=== PATIENT | male | born 1975 | race Caucasian/White ===

== ENCOUNTER → 2020-10-11 09:59 | Outpatient (BNVA) | payer OTHER, SELFPAY | PROVIDERS: PCP Internal Medicine; Referring Provider Internal Medicine; Visit Provider Urology | DX: N52.9 Male erectile dysfunction, unspecified (principal); Z79.899 Other long term (current) drug therapy | CPT/HCPCS: 99212 ==

== ENCOUNTER 2021-04-17 08:39 | Outpatient (REF) | payer OTHER, SELFPAY ==
[2021-04-17 11:58] LABS: Alanine Aminotransferase 27 U/L (0-40); Anion Gap 12 (12-20); Aspartate Amino Transferase 18 U/L (5-37); Blood Urea Nitrogen 21 mg/dL (9-16); Carbon Dioxide 28 mmol/L (22-29); Chloride 107 mmol/L (96-108); Cholesterol 187 mg/dL; Estimated Glomerular Filt Rate > 60; Glucose Fasting 95 mg/dL (60-99); HDL Cholesterol 43 mg/dL; LDL Cholesterol Calculated 122 mg/dl; Potassium 4.4 mmol/L (3.3-5.1); Sodium 143 mmol/L (135-145); Triglycerides 113 mg/dL
[2021-04-17 12:22] LABS: Free T4 (Free Thyroxine) 1.12 ng/dL (0.71-1.85); Thyroid Stimulating Hormone 1.15 uIU/mL (0.32-4.0)
[2021-04-18 21:42] LABS: Thyroid Peroxidase Antibodies <1 IU/mL (<9)
== END 2021-04-17 08:40 | disposition home or self-care (01) ==
LOC: HO.HMGCLDS 08:39
PROVIDERS: PCP Internal Medicine; Visit Provider Internal Medicine
DX: Z00.01 Encounter for general adult medical examination with abnormal findings (principal); E03.9 Hypothyroidism, unspecified; I10 Essential (primary) hypertension
CPT/HCPCS: 36415; 80048; 80061; 84439; 84443; 84450; 84460; 86376

== ENCOUNTER 2022-04-21 08:49 | Outpatient (REF) | payer OTHER, SELFPAY ==
[2022-04-21 11:45] LABS: Alanine Aminotransferase 22 U/L (0-40); Anion Gap 9 (12-20); Aspartate Amino Transferase 16 U/L (5-37); Blood Urea Nitrogen 23 mg/dL (9-16); Calcium 9.2 mg/dL (8.4-10.2); Carbon Dioxide 28 mmol/L (22-29); Chloride 107 mmol/L (96-108); Cholesterol 199 mg/dL; Estimated Glomerular Filt Rate > 60; Glucose Fasting 107 mg/dL (60-99); HDL Cholesterol 41 mg/dL; LDL Cholesterol Calculated 132 mg/dl; Potassium 4.2 mmol/L (3.3-5.1); Sodium 140 mmol/L (135-145); Triglycerides 132 mg/dL
[2022-04-21 12:04] LABS: Free T4 (Free Thyroxine) 1.08 ng/dL (0.71-1.85); Thyroid Stimulating Hormone 1.88 uIU/mL (0.32-4.0)
== END 2022-04-21 08:50 | disposition home or self-care (01) ==
LOC: HO.HMGCLDS 08:49
PROVIDERS: PCP Internal Medicine; Visit Provider Internal Medicine
DX: Z00.01 Encounter for general adult medical examination with abnormal findings (principal); E03.9 Hypothyroidism, unspecified
CPT/HCPCS: 36415; 80048; 80061; 84439; 84443; 84450; 84460

== ENCOUNTER → 2022-09-19 08:44 | Outpatient (BNVA) | payer OTHER, SELFPAY | PROVIDERS: PCP Internal Medicine; Visit Provider Nurse Practitioner Family | DX: Z01.818 Encounter for other preprocedural examination (principal); K58.0 Irritable bowel syndrome with diarrhea | CPT/HCPCS: 99202 ==

== ENCOUNTER 2023-06-14 06:52 | Outpatient (REF) | payer OTHER, SELFPAY ==
[2023-06-14 12:36] LABS: Estimated Average Glucose 103 mg/dL; Hemoglobin A1c % 5.2 %
[2023-06-14 13:00] LABS: Cholesterol 211 mg/dL; Glucose Fasting 103 mg/dL (60-99); HDL Cholesterol 44 mg/dL; LDL Cholesterol Calculated 139 mg/dl; Triglycerides 141 mg/dL
[2023-06-14 13:07] LABS: Free T4 (Free Thyroxine) 0.98 ng/dL (0.71-1.85); Thyroid Stimulating Hormone 2.66 uIU/mL (0.32-4.0)
== END 2023-06-14 06:53 | disposition home or self-care (01) ==
LOC: HO.HMGCLDS 06:52
PROVIDERS: PCP Internal Medicine; Visit Provider Internal Medicine
DX: E03.9 Hypothyroidism, unspecified (principal); R73.01 Impaired fasting glucose
CPT/HCPCS: 36415; 80061; 82947; 83036; 84439; 84443

== ENCOUNTER 2023-06-27 13:41 | Outpatient (AMB) | payer OTHER, SELFPAY ==
[2023-06-27 13:49] VITALS: BP 114/80; PULSE 84; O2SAT 95; BMI 22.8
--- NOTE | 2023-06-27 13:49 | A.OFFPC_ITS ---
Vital Signs 06/27/23 13:49 Height 5 ft 7 in Weight 145 lb 8 oz BMI 22.8 BP 114/80 Blood Pressure Location Rt brachial Position Sitting Pulse 84 Pulse Source Pulse Oximeter Pulse Oximetry (%) 95 Oxygen Delivery Method Room Air Intake Visit Reasons: Medication followup Allergies acetaminophen [From PERCOCET] Allergy (Unknown, Verified 06/27/23 14:22) HIVES amoxicillin [AMOXICILLIN] Allergy (Unknown, Verified 06/27/23 14:22) UNKNOWN ascorbic acid [From AIRBORNE (ASCORBATE SODIUM)] Allergy (Unknown, Verified 06/27/23 14:22) HIVES aspirin Allergy (Unknown, Verified 06/27/23 14:22) hives glutamine [From AIRBORNE (ASCORBATE SODIUM)] Allergy (Unknown, Verified 06/27/23 14:22) HIVES guaifenesin [From MUCINEX] Allergy (Unknown, Verified 06/27/23 14:22) HIVES herbal complex no.124 [From AIRBORNE (ASCORBATE SODIUM)] Allergy (Unknown, Verified 06/27/23 14:22) HIVES lysine HCl [From AIRBORNE (ASCORBATE SODIUM)] Allergy (Unknown, Verified 06/27/23 14:22) HIVES multivitamin with minerals [From AIRBORNE (ASCORBATE SODIUM)] Allergy (Unknown, Verified 06/27/23 14:22) HIVES oxycodone [From PERCOCET] Allergy (Unknown, Verified 06/27/23 14:22) HIVES penicillin V Allergy (Unknown, Verified 06/27/23 14:22) hives generic robitussin Allergy (Intermediate, Uncoded 06/27/23 14:22) hives bee stings Allergy (Unknown, Uncoded 06/27/23 14:22) Unknown Medication List - Last Reconciled 06/27/23 by Rody Hernandez MD [cbd oil 2 gtts SL q HS sublingual; ] levothyroxine 75 mcg PO QAM Tobacco use date assessed: 06/27/23 Dental Screening Dental Screen Date: 06/27/23 Did you have a dental visit in the last 12 months?: Yes Did you have a dental problem in the last 6 months where you did not have access to dental care?: No Was dental information given to patient?: No HPI Medication followup HPI Details 48-year-old male with hypothyroidism, here today for follow-up he is currently taking levothyroxine 75 mcg taken daily in a.m.. Had recent fasting labs done which showed LDL cholesterol and fasting glucose slightly elevated , with thyroid levels within normal limits Laboratory Tests 06/14/23 06/14/23 06:57 06:57 Fasting Glucose 103 H Estimat Average Gl ucose 103 Hemoglobin A1c % 5.2 Triglycerides 141 Cholesterol 211 LDL Cholesterol, C alc 139 HDL Cholesterol 44 TSH 2.66 Free T4 0.98 His also complaining of pain over anterior aspect of right shoulder which started this morning while at work. 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 Denies any numbness tingling, no weakness. [facility] Medical History Barretts esophagus Dyslipidemia GERD (gastroesophageal reflux disease) Heartburn symptom Heel spur IBS (irritable bowel syndrome) Impaired fasting glucose Rupture patellar tendon Surgical History S/P LASIK surgery Family History Father Myocardial infarct CVD (cardiovascular disease) Substance use disorder Mother Stroke Diabetes Maternal Uncle Colon cancer Social History Housing: House Alcohol intake: never Patient Tobacco Use Status: Former Tobacco user e-Cigarette/Vaping Use: Never Used service: No Current occupational status: employed Cognitive needs: No Hearing needs: No Vision needs: No Questionnaire PHQ-9 Over the last 2 weeks, how often have you been bothered by any of the following problems? 1. Little interest or pleasure in doing things: not at all 2. Feeling down, depressed, or hopeless: not at all 3. Trouble falling or staying asleep, or sleeping too much: not at all 4. Feeling tired or having little energy: not at all 5. Poor appetite or overeating: not at all 6. Feeling bad about yourself - or that you are a failure or have let yourself or your family down: not at all 7. Trouble concentrating on things, such as reading the newspaper or watching television: not at all 8. Moving or speaking so slowly that other people could have noticed. Or the opposite - being so fidgety or restless that you have been moving around a lot more than usual: not at all 9. Thoughts that you would be better off or of hurting yourself in some way: not at all Total score: 0 Depression Screening Interpretation: Negative 10252 - PHQ-9 Billing: Yes Source: Developed by Drs. Jim Busch, Ashley Pryor, Shaquille Garcia and colleagues, with an educational faith from [employer]. Thrive Questionnaire Date Thrive assessed: 06/27/23 I am a: Patient What is your living situation today?: I have a steady place to live Within the past 12 months, did the food you bought not last and you didn't have the money to get more?: Never true Within the past 12 months, did you worry whether your food would run out before you got money to buy more?: Never true Do you have trouble paying for medicines?: No Do you have trouble getting transportation to medical appointments?: No Do you have trouble paying your heating and electricity bill?: No Do you have trouble taking care of your child, family member or friend?: No Do you have trouble with day-to-day activities such as bathing, preparing meals, shopping, managing finances, etc.?: No Are you currently unemployed and looking for a job?: No Are you interested in more education?: No AUDIT C Alcohol Use Questionnaire (AUDIT-C) 1. How often do you have a drink containing alcohol?: Never 3. How often do you have six or more drinks on one occasion?: Never Total Score: 0 Score Reviewed/Action Taken: Yes ETHAN-7 AMB Questionnaire ETHAN-7 Date ETHAN - 7 assessed: 04/18/22 Feeling nervous, anxious, or on edge: 0 = Not at all Not being able to stop or control worryin = Not at all Worrying too much about different things: 0 = Not at all Trouble relaxin = Not at all Being so restless that it is hard to sit still: 0 = Not at all Becoming easily annoyed or irritable: 0 = Not at all Feeling afraid as if something awful might happen: 0 = Not at all Total ETHAN-7 score (0-4 normal; 5-9 mild; 10-14 moderate; 15-21 severe): 0 Source: Developed by Drs. Jim Busch, Ashley Pryor, Shaquille Garcia and colleagues, with an educational faith from [employer]. ETHAN-7 Assessment Billing ETHAN-7 Assessment Tool: ETHAN-7 Assessment 94562 Review of Systems Const All systems reviewed & are unremarkable except as noted in HPI and below Musc Denies numbness and Denies tingling Neuro Reports no additional complaints, Denies focal weakness, Denies numbness, Denies Sensory deficit (Neuro), Denies tingling and Denies paresthesias Physical exam (Primary Care) Vital Signs: Last Vital Signs Pulse 84 06/27/23 13:49 BP 114/80 06/27/23 13:49 Pulse Ox 95 06/27/23 13:49 Oxygen Delivery Method Room Air 06/27/23 13:49 BMI result Body Mass Index 22.8 Tobacco/Smoking Status: Tobacco use Status Tobacco use date assessed 06/27/23 06/27/23 13:51 Patient Tobacco Use Status Former Tobacco user 06/27/23 13:51 e-Cigarette/Vaping Use Never Used 06/27/23 13:51 Depression Screening Interpretation: Negative Thrive Assessment: Date of Thrive Assessment Date Thrive assessed 04/18/22 06/27/23 13:51 Const General: cooperative, healthy appearing, comfortable and no acute distress Nutritional Appearance: average body habitus Orientation/consciousness: patient oriented x3 Neck Other: Supple with no lymphadenopathy, thyroid gland nonpalpable Resp Auscultation: clear to auscultation bilaterally Cardio Other: S1-S2 present regular rate and rhythm Neuro General: patient oriented x3 Sensory Exam: No Sensory deficit (Neuro) Extrem Other: Unable to abduct right arm more than 90 degrees would expect is experiencing pain over anterior aspect of right shoulder joint, slight swelling noted over right AC joint, area tender to palpation Assessment and Plan Assessment & Plan (1) Acquired hypothyroidism: Code(s): E03.9 - Hypothyroidism, unspecified Plan: Thyroid levels are within normal limit, continue levothyroxine 75 mcg daily in a.m. (2) Right anterior shoulder pain: Code(s): M25.511 - Pain in right shoulder Plan: May take ibuprofen 200 mg per tablet, 1-2 tablets every 12 hours as needed pain always take with food. Try applying Salonpas patch with lidocaine to affected area at bedtime. Rest of joint advised. RTC clinic if symptoms worsen (3) Impaired fasting glucose: Code(s): R73.01 - Impaired fasting glucose Plan: Your fasting blood sugars elevated above 100 mg/dL. Impaired glucose metabolism O2 at risk for developing diabetes mellitus type 2, as well as heart attack and stroke later on. Lifestyle changes at just weight loss, healthy eating habits, and regular exercise are important, and can prevent the progression to diabetes (4) Dyslipidemia: Code(s): E78.5 - Hyperlipidemia, unspecified Plan: Reviewed recent fasting lipid profile with patient with higher LDL cholesterol . Stressed importance of following a low-cholesterol diet and regular exercise, at least 30 minutes 3 to 4 times a week. Advised patient to make healthy food choices, eat more fruits, vegetables, whole grains, wild caught fish and low-fat dairy. Limit amount of meat and fried or fatty food products, as well as processed foods and fast foods. Coding Level of Care Code Est Pt Level 3 (88371) Diagnoses Acquired hypothyroidism E03.9 Right anterior shoulder pain M25.511 Impaired fasting glucose R73.01 Dyslipidemia E78.5 Additional Codes ETHAN-7 Assessment Billing - ETHAN-7 Assessment Tool: ETHAN-7 Assessment 87067 ([id number])
== END 2023-06-27 16:17 | disposition home or self-care (01) ==
PROVIDERS: PCP Internal Medicine; Visit Provider Internal Medicine
DX: E03.9 Hypothyroidism, unspecified (principal); M25.511 Pain in right shoulder; R73.01 Impaired fasting glucose; E78.5 Hyperlipidemia, unspecified
CPT/HCPCS: 99213

== ENCOUNTER 2025-07-07 08:00 | Outpatient (REF) | payer OTHER, SELFPAY ==
[2025-07-07 11:33] LABS: Hemoglobin A1C 144.0903 umol/L; Total Hemoglobin (HGBA1C) 3770.1242 umol/L
[2025-07-07 12:12] LABS: Alanine Aminotransferase 31 U/L (0-40); Anion Gap 11 (12-20); Aspartate Amino Transferase 33 U/L (5-37); Blood Urea Nitrogen 15 mg/dL (9-16); Calcium 9.1 mg/dL (8.4-10.2); Carbon Dioxide 29 mmol/L (22-29); Chloride 106 mmol/L (96-108); Cholesterol 206 mg/dL (<200); Estimated Glomerular Filt Rate > 60; HDL Cholesterol 46 mg/dL (>40); Potassium 3.9 mmol/L (3.3-5.1); Sodium 142 mmol/L (135-145); Triglycerides 156 mg/dL (<150)
[2025-07-07 12:20] LABS: Free T4 (Free Thyroxine) 1.14 ng/dL (0.71-1.85); Thyroid Stimulating Hormone 1.56 uIU/mL (0.32-4.0)
== END 2025-07-07 08:01 | disposition home or self-care (01) ==
LOC: HO.HMGCLDS 08:00
PROVIDERS: PCP Internal Medicine; Visit Provider Internal Medicine
DX: E78.5 Hyperlipidemia, unspecified (principal); E03.9 Hypothyroidism, unspecified; R73.01 Impaired fasting glucose
CPT/HCPCS: 36415; 80048; 80061; 83036; 84439; 84443; 84450; 84460

== ENCOUNTER 2025-07-13 08:08 | Outpatient (AMB) | payer OTHER, SELFPAY ==
[2025-07-13 08:16] VITALS: BP 108/72; PULSE 70; RESP 14; TEMP 36.6; O2SAT 97; BMI 22.4
--- NOTE | 2025-07-13 08:16 | A.OFFPC_ITS ---
Vital Signs 07/13/25 08:16 Height 5 ft 7 in Weight 143 lb BMI 22.4 BP 108/72 Blood Pressure Location Lt brachial Position Sitting Respiration 14 Pulse 70 Pulse Source Pulse Oximeter Temp 97.9 F Temp Source Oral Pulse Oximetry (%) 97 Intake Visit Reasons: Med. Review Allergies acetaminophen (From PERCOCET) Allergy (Unknown, Verified 07/13/25 08:56) HIVES amoxicillin (AMOXICILLIN) Allergy (Unknown, Verified 07/13/25 08:56) UNKNOWN ascorbic acid (From AIRBORNE (ASCORBATE SODIUM)) Allergy (Unknown, Verified 07/13/25 08:56) HIVES aspirin Allergy (Unknown, Verified 07/13/25 08:56) hives glutamine (From AIRBORNE (ASCORBATE SODIUM)) Allergy (Unknown, Verified 07/13/25 08:56) HIVES guaifenesin (From MUCINEX) Allergy (Unknown, Verified 07/13/25 08:56) HIVES herbal complex no.124 (From AIRBORNE (ASCORBATE SODIUM)) Allergy (Unknown, Verified 07/13/25 08:56) HIVES lysine HCl (From AIRBORNE (ASCORBATE SODIUM)) Allergy (Unknown, Verified 07/13/25 08:56) HIVES multivitamin with minerals (From AIRBORNE (ASCORBATE SODIUM)) Allergy (Unknown, Verified 07/13/25 08:56) HIVES oxycodone (From PERCOCET) Allergy (Unknown, Verified 07/13/25 08:56) HIVES penicillin V Allergy (Unknown, Verified 07/13/25 08:56) hives generic robitussin Allergy (Intermediate, Uncoded 07/13/25 08:56) hives bee stings Allergy (Unknown, Uncoded 07/13/25 08:56) Unknown Medication List - Last Reconciled 07/13/25 by Rody Hernandez MD levothyroxine 75 mcg PO QAM Tobacco use date assessed: 07/13/25 Dental Screening Dental Screen Date: 07/13/25 Did you have a dental visit in the last 12 months?: Yes Did you have a dental problem in the last 6 months where you did not have access to dental care?: No Was dental information given to patient?: Patient has dentist [facility] Medical History (Updated 07/19/25 @ 00:23 by Rody Hernandez MD) House dust mite allergy Dyslipidemia Impaired fasting glucose IBS (irritable bowel syndrome) Heartburn symptom Rupture patellar tendon Heel spur Barretts esophagus GERD (gastroesophageal reflux disease) Surgical History S/P LASIK surgery Family History Father Myocardial infarct CVD (cardiovascular disease) Substance use disorder Mother Stroke Diabetes Maternal Uncle Colon cancer Social History Housing: House Alcohol intake: never Patient Tobacco Use Status: Former Tobacco user e-Cigarette/Vaping Use: Never Used service: No Current occupational status: employed Current occupation: contractor Cognitive needs: No Hearing needs: No Vision needs: No Questionnaire PHQ-9 Over the last 2 weeks, how often have you been bothered by any of the following problems? 1. Little interest or pleasure in doing things: not at all 2. Feeling down, depressed, or hopeless: not at all 3. Trouble falling or staying asleep, or sleeping too much: not at all 4. Feeling tired or having little energy: several days 5. Poor appetite or overeating: not at all 6. Feeling bad about yourself - or that you are a failure or have let yourself or your family down: not at all 7. Trouble concentrating on things, such as reading the newspaper or watching television: not at all 8. Moving or speaking so slowly that other people could have noticed. Or the opposite - being so fidgety or restless that you have been moving around a lot more than usual: not at all 9. Thoughts that you would be better off or of hurting yourself in some way: not at all Total score: 1 Depression Screening Interpretation: Negative Depression Screening Done: Yes 76358 - PHQ-9 Billing: Yes Source: Developed by Drs. Jim Busch, Ashley Pryor, Shaquille Garcia and colleagues, with an educational faith from [employer]. Thrive Questionnaire Date Thrive assessed: 07/13/25 I am a: Patient What is your living situation today?: I have a steady place to live Within the past 12 months, did the food you bought not last and you didn't have the money to get more?: Never true Within the past 12 months, did you worry whether your food would run out before you got money to buy more?: Never true Do you have trouble paying for medicines?: No Do you have trouble getting transportation to medical appointments?: No Do you have trouble paying your heating and electricity bill?: No Do you have trouble taking care of your child, family member or friend?: No Do you have trouble with day-to-day activities such as bathing, preparing meals, shopping, managing finances, etc.?: No Are you currently unemployed and looking for a job?: No Are you interested in more education?: No Please select the resources that you would like help with: None Currently or been in a relationship where the following occur: No concerns reported THRIVE Score: 0 AUDIT C Alcohol Use Questionnaire (AUDIT-C) 1. How often do you have a drink containing alcohol?: Never 3. How often do you have six or more drinks on one occasion?: Never Total Score: 0 Score Reviewed/Action Taken: Yes ETHAN-7 AMB Questionnaire ETHAN-7 Date ETHAN - 7 assessed: 07/13/25 Feeling nervous, anxious, or on edge: 0 = Not at all Not being able to stop or control worryin = Not at all Worrying too much about different things: 0 = Not at all Trouble relaxin = Not at all Being so restless that it is hard to sit still: 0 = Not at all Becoming easily annoyed or irritable: 0 = Not at all Feeling afraid as if something awful might happen: 0 = Not at all Total ETHAN-7 score (0-4 normal; 5-9 mild; 10-14 moderate; 15-21 severe): 0 Source: Developed by Drs. Jim Busch, Ashley Pryor, Shaquille Garcia and colleagues, with an educational faith from [employer]. ETHAN-7 Assessment Billing ETHAN-7 Assessment Tool: ETHAN-7 Assessment 96762 Review of Systems Const Reports no additional complaints Eyes Reports no additional complaints ENT Reports no additional complaints Card Denies chest pain, Denies diaphoresis, Denies irregular heart rhythm, Denies lightheadedness and Denies dyspnea Resp Denies cough and Denies dyspnea GI Reports no additional complaints Reports no additional complaints Musc Denies numbness and Denies tingling Skin/Breast Denies rash Neuro Reports no additional complaints, Denies focal weakness, Denies numbness, Denies Sensory deficit (Neuro), Denies tingling and Denies paresthesias Psych Reports no additional complaints Endo Reports no additional complaints Eldon/Lymph Reports no additional complaints Aller/Immun Details: Reports allergy to dust mites with history of anaphylactic reaction Physical exam (Primary Care) Vital Signs: Last Vital Signs Temp 97.9 F 07/13/25 08:16 Pulse 70 07/13/25 08:16 Resp 14 07/13/25 08:16 BP 108/72 07/13/25 08:16 Pulse Ox 97 07/13/25 08:16 BMI result Body Mass Index 22.4 Tobacco/Smoking Status: Tobacco use Status Tobacco use date assessed 07/13/25 07/13/25 08:17 Patient Tobacco Use Status Former Tobacco user 07/13/25 08:17 e-Cigarette/Vaping Use Never Used 07/13/25 08:17 PHQ-9: PHQ-9 Score PHQ-9: Total score 1 07/13/25 09:07 Depression Screening Interpretation: Negative Thrive Assessment: Date of Thrive Assessment Date Thrive assessed 07/13/25 07/13/25 08:17 Currently or been in a relationship where the following occur: No concerns reported Const General: cooperative and no acute distress Nutritional Appearance: average body habitus Orientation/consciousness: patient oriented x3 Neck Other: Supple with no lymphadenopathy, thyroid gland nonpalpable Resp Auscultation: clear to auscultation bilaterally Cardio Other: S1-S2 present regular rate and rhythm GI Palpation (GI): Soft to palpation, nontender, no guarding and no masses Auscultation: normal bowel sounds General: Yes no CVA tenderness Back/Spine/Pelvis Back: no CVA tenderness and No back tenderness Skin General skin exam: no rashes or lesions noted Neuro General: patient oriented x3, gait normal, moves all extremities and no focal motor deficits Sensory Exam: No Sensory deficit (Neuro) Extrem General: Yes full ROM, Yes no joint enlargement and Yes normal gait Psych Appearance: grossly normal Mental Status: mental status grossly normal Speech and movement: Normal speech and movement present Affect: normal affect Results Reviewed Results Reviewed: Laboratory Tests 07/07/25 08:06 Estimat Average Glucose 114 Hemoglobin A1c % 5.6 Name: Major Garcia Age/Sex: 50/M : 1975 Unit#: [id number] Attend Dr: Rody Hernandez MD Re07/07/25 Status: DEP REF Location: [facility] Disch: SPEC : [id number] TERRANCE: 07/07/25 STATUS: COMP REQ : [id number] RECD: 07/07/25-[address]: Rody Hernandez MD COMP: 07/07/25 ENTERED: 07/07/[address] [facility] [address]: ORDERED: Met Prof Fast, AST, ALT, Lipid Panel, Free T4, TSH Test Result Flag Reference Sodium 142 135-145 mmol/L Potassium 3.9 3.3-5.1 mmol/L CL 106 96-108 mmol/L CO2 29 22-29 mmol/L Gap 11 L 12-20 BUN 15 9-16 mg/dL Creat 1.08 0.5-1.4 mg/dL eGFR > 60 Chronic Kidney Disease: Estimated GFR < 60 mL/min/1.73m2 Severe Kidney Disease: Estimated GFR < 15 mL/min/1.73m2 FBS 104 H 60-99 mg/dL A fasting glucose from 100-125 mg/dl is considered impaired (pre-diabetes). CA 9.1 8.4-10.2 mg/dL AST (GOT) 33 5-37 U/L ALT (GPT) 31 0-40 U/L Triglyceride 156 H <150 mg/dL Desirable Triglyceride: less than 150 mg/dL Borderline High Triglyceride 150-199 mg/dL High Triglyceride: 200-499 mg/dL Very High Triglyceride: greater than or equal to 5OO mg/dL Cholesterol 206 H <200 mg/dL Desirable Cholesterol: less than 200 mg/dL Borderline High Cholesterol: 200-239 mg/dL High Cholesterol: greater than 239 mg/dL LDL Calculated 129 H <100 mg/dL Desirable LDL: less than 100 mg/dL Near Optimal/Above Optimal LDL: 110-129 mg/dL Borderline High LDL: 130-159 mg/dL High LDL: 160-189 mg/dL Very High LDL: greater than or equal to 190 mg/dL HDL 46 >40 mg/dL Desirable HDL: greater than 40 mg/dL Note: This HDL assay may give artificially low results in patients with liver disease. Free T4 1.14 0.71-1.85 ng/dL TSH 3rd Gen. 1.56 0.32-4.0 uIU/mL TSH 3rd Generation ([facility]) Coding Level of Care Code Est Pt Level 4 (25098) Complex EM visit Add On G2211 Diagnoses Acquired hypothyroidism E03.9 House dust mite allergy Z91.09 Impaired fasting glucose R73.01 Dyslipidemia E78.5 Additional Codes ETHAN-7 Assessment Billing - ETHAN-7 Assessment Tool: ETHAN-7 Assessment 44788 ([id number]) PHQ-9 - 10428 - PHQ-9 Billing: Yes ([id number]) Assessment & Plan Assessment & Plan (1) Acquired hypothyroidism: Code(s): E03.9 - Hypothyroidism, unspecified Category: Medical (2) House dust mite allergy: Code(s): Z91.09 - Other allergy status, other than to drugs and biological substances Category: Medical (3) Impaired fasting glucose: Code(s): R73.01 - Impaired fasting glucose Category: Medical (4) Dyslipidemia: Code(s): E78.5 - Hyperlipidemia, unspecified Category: Medical Plan The patient will continue with levothyroxine 75 mcg for hypothyroidism, with a new prescription sent for a year to ensure medication adherence. Given the history of anaphylaxis to dust mites, the patient is advised to keep Benadryl at home and consider obtaining a new Epipen. For elevated blood glucose and triglycerides, dietary modifications are recommended, particularly reducing nighttime sweets consumption. Preventative care measures include scheduling a physical examination and considering a Cologuard test for colon cancer screening due to family history. Patient was informed and verbally consented to the use of an ambient scribe for clinic note documentation during this visit. Medications: Refilled levothyroxine 75 mcg PO QAM 90 tabs 4RF E03.9 - Hypothyroidism, unspecified
== END 2025-07-13 09:07 | disposition home or self-care (01) ==
LOC: HO.HMCC 08:09
PROVIDERS: PCP Internal Medicine; Visit Provider Internal Medicine
DX: E03.9 Hypothyroidism, unspecified (principal); Z91.09 Other allergy status, other than to drugs and biological substances; R73.01 Impaired fasting glucose; E78.5 Hyperlipidemia, unspecified

== ENCOUNTER → 2025-07-13 08:08 | Outpatient (BNVA) | payer OTHER, SELFPAY | PROVIDERS: PCP Internal Medicine; Visit Provider Internal Medicine | DX: R73.01 Impaired fasting glucose (principal); E03.9 Hypothyroidism, unspecified; E78.5 Hyperlipidemia, unspecified; Z91.09 Other allergy status, other than to drugs and biological substances | CPT/HCPCS: 96127; 99212 ==

== ENCOUNTER 2025-07-28 12:32 | Outpatient (AMB) | payer OTHER, SELFPAY ==
[2025-07-28 13:03] VITALS: BP 100/70; PULSE 73; RESP 16; TEMP 36.9; O2SAT 99; BMI 23.2
--- NOTE | 2025-07-28 13:03 | A.OFFPC_ITS ---
Vital Signs 07/28/25 13:03 Height 5 ft 7 in Weight 148 lb BMI 23.2 BP 100/70 Blood Pressure Location Lt brachial Position Sitting Respiration 16 Pulse 73 Pulse Source Pulse Oximeter Temp 98.5 F Temp Source Oral Pulse Oximetry (%) 99 Oxygen Delivery Method Room Air Intake Visit Reasons: PE Allergies acetaminophen (From PERCOCET) Allergy (Unknown, Verified 07/28/25 13:23) HIVES amoxicillin (AMOXICILLIN) Allergy (Unknown, Verified 07/28/25 13:23) UNKNOWN ascorbic acid (From AIRBORNE (ASCORBATE SODIUM)) Allergy (Unknown, Verified 07/28/25 13:23) HIVES aspirin Allergy (Unknown, Verified 07/28/25 13:23) hives glutamine (From AIRBORNE (ASCORBATE SODIUM)) Allergy (Unknown, Verified 07/28/25 13:23) HIVES guaifenesin (From MUCINEX) Allergy (Unknown, Verified 07/28/25 13:23) HIVES herbal complex no.124 (From AIRBORNE (ASCORBATE SODIUM)) Allergy (Unknown, Verified 07/28/25 13:23) HIVES lysine HCl (From AIRBORNE (ASCORBATE SODIUM)) Allergy (Unknown, Verified 07/28/25 13:23) HIVES multivitamin with minerals (From AIRBORNE (ASCORBATE SODIUM)) Allergy (Unknown, Verified 07/28/25 13:23) HIVES oxycodone (From PERCOCET) Allergy (Unknown, Verified 07/28/25 13:23) HIVES penicillin V Allergy (Unknown, Verified 07/28/25 13:23) hives generic robitussin Allergy (Intermediate, Uncoded 07/28/25 13:23) hives bee stings Allergy (Unknown, Uncoded 07/28/25 13:23) Unknown Medication List - Last Reconciled 07/28/25 by Rody Hernandez MD levothyroxine 75 mcg PO QAM Tobacco use date assessed: 07/28/25 Dental Screening Dental Screen Date: 07/28/25 Did you have a dental visit in the last 12 months?: Yes Did you have a dental problem in the last 6 months where you did not have access to dental care?: No Was dental information given to patient?: Patient has dentist HPI PE HPI Details 50-year-old male with history of dyslipi demia, impaired fasting glucose, acquired hypothyroidism, and history of erectile dysfunction, here today for his physical exam. He has been feeling well, with no new complaints at present time. - The patient is a 50-year-old male pres enting for a routine wellness visit and management of chronic conditions. - Hyperglycemia: Recent labs indicate el evated blood sugar levels, attributed to dietary habits. - Tendinitis: Elbow pain has been ongoin g for several months, worsened by repetitive trauma. - Hypothyroidism: Managed with levothyro xine, with stable thyroid function and no significant weight changes. - Preventative care: Tetanus booster and shingles vaccine are recommended; colon cancer screening with stool test is planned. [facility] Medical History House dust mite allergy Dyslipidemia Impaired fasting glucose IBS (irritable bowel syndrome) Heartburn symptom Rupture patellar tendon Heel spur Barretts esophagus GERD (gastroesophageal reflux disease) Surgical History S/P LASIK surgery Family History Father Myocardial infarct CVD (cardiovascular disease) Substance use disorder Mother Stroke Diabetes Maternal Uncle Colon cancer Social History Housing: House Alcohol intake: never Patient Tobacco Use Status: Former Tobacco user e-Cigarette/Vaping Use: Never Used service: No Current occupational status: employed Current occupation: contractor Cognitive needs: No Hearing needs: No Vision needs: No Questionnaire PHQ-9 Over the last 2 weeks, how often have you been bothered by any of the following problems? Depression Screening Interpretation: Negative Depression Screening Done: Yes Source: Developed by Drs. Jim Busch, Ashley Pryor, Shaquille Garcia and colleagues, with an educational faith from [email or web address]. Thrive Questionnaire Date Thrive assessed: 07/13/25 I am a: Patient What is your living situation today?: I have a steady place to live Within the past 12 months, did the food you bought not last and you didn't have the money to get more?: Never true Within the past 12 months, did you worry whether your food would run out before you got money to buy more?: Never true Do you have trouble paying for medicines?: No Do you have trouble getting transportation to medical appointments?: No Do you have trouble paying your heating and electricity bill?: No Do you have trouble taking care of your child, family member or friend?: No Do you have trouble with day-to-day activities such as bathing, preparing meals, shopping, managing finances, etc.?: No Are you currently unemployed and looking for a job?: No Are you interested in more education?: No Please select the resources that you would like help with: None Currently or been in a relationship where the following occur: No concerns reported THRIVE Score: 0 ETHAN-7 AMB Questionnaire ETHAN-7 Date ETHAN - 7 assessed: 07/13/25 Source: Developed by Drs. Jim Busch, Ashley Pryor, Shaquille Garcia and colleagues, with an educational faith from [email or web address]. Review of Systems Const Reports no additional complaints Eyes Reports no additional complaints ENT Reports no additional complaints Card Denies chest pain, Denies diaphoresis, Denies irregular heart rhythm, Denies lightheadedness and Denies dyspnea Resp Denies cough and Denies dyspnea GI Reports no additional complaints Reports no additional complaints Musc Details: Recurrent pain and stiffness in right elbow joint, with no history of trauma Denies numbness and Denies tingling Skin/Breast Denies rash Neuro Reports no additional complaints, Denies focal weakness, Denies numbness, Denies Sensory deficit (Neuro), Denies tingling and Denies paresthesias Psych Reports no additional complaints Endo Reports no additional complaints Eldon/Lymph Reports no additional complaints Aller/Immun Details: Reports allergy to dust mites with history of anaphylactic reaction Physical exam (Primary Care) Vital Signs: Last Vital Signs Temp 98.5 F 07/28/25 13:03 Pulse 73 07/28/25 13:03 Resp 16 07/28/25 13:03 BP 100/70 07/28/25 13:03 Pulse Ox 99 07/28/25 13:03 Oxygen Delivery Method Room Air 07/28/25 13:03 BMI result Body Mass Index 23.2 Tobacco/Smoking Status: Tobacco use Status Tobacco use date assessed 07/28/25 07/28/25 13:06 Patient Tobacco Use Status Former Tobacco user 07/28/25 13:06 e-Cigarette/Vaping Use Never Used 07/28/25 13:06 Depression Screening Interpretation: Negative Thrive Assessment: Date of Thrive Assessment Date Thrive assessed 07/13/25 07/28/25 13:06 Currently or been in a relationship where the following occur: No concerns reported Advance Care Planning discussion: Completed/Scanned Date of discussion: 07/28/25 Who was present: patient Forms completed: Health Care Proxy Time spent: 16-45 minutes Actual minutes spent: 2 Const General: cooperative and no acute distress Nutritional Appearance: average body habitus Orientation/consciousness: patient oriented x3 HENMT Head: Yes normocephalic Ears: external ears normal, TM's normal bilaterally and EAC's normal General nose exam: Normal external nose present Face and sinus: Yes face symmetric Mouth: Normal oral and palatal mucosa present, oropharynx normal and moist mucous membranes Eyes General: appearance normal, both eyes and all related structures Neck Other: Supple with no lymphadenopathy, thyroid gland nonpalpable Resp Auscultation: clear to auscultation bilaterally Cardio Other: S1-S2 present regular rate and rhythm GI Palpation (GI): Soft to palpation, nontender, no guarding and no masses Auscultation: normal bowel sounds General: Yes no CVA tenderness Back/Spine/Pelvis Back: no CVA tenderness and No back tenderness Skin General skin exam: no rashes or lesions noted Neuro General: patient oriented x3, gait normal, moves all extremities and no focal motor deficits Sensory Exam: No Sensory deficit (Neuro) Extrem General: Yes normal to inspection, Yes full ROM, Yes no joint enlargement and Yes normal gait Psych Appearance: grossly normal Mental Status: mental status grossly normal Speech and movement: Normal speech and movement present Affect: normal affect Results Reviewed Results Reviewed: Laboratory Tests 07/07/25 08:06 Hemoglobin A1c % 5.6 Name: Major Garcia Age/Sex: 50/M : 1975 Unit#: [id number] Attend Dr: Rody Hernandez MD Re07/07/25 Status: DEP [facility] Disch: SPEC : [id number] TERRANCE: 07/07/25 STATUS: COMP REQ : [id number] RECD: 07/07/25-[address]: Rody Hernandez MD COMP: 07/07/25-1220 ENTERED: 07/07/25 [facility]: ORDERED: Met Prof Fast, AST, ALT, Lipid Panel, Free T4, TSH Test Result Flag Reference Sodium 142 135-145 mmol/L Potassium 3.9 3.3-5.1 mmol/L CL 106 96-108 mmol/L CO2 29 22-29 mmol/L Gap 11 L 12-20 BUN 15 9-16 mg/dL Creat 1.08 0.5-1.4 mg/dL eGFR > 60 Chronic Kidney Disease: Estimated GFR < 60 mL/min/1.73m2 Severe Kidney Disease: Estimated GFR < 15 mL/min/1.73m2 FBS 104 H 60-99 mg/dL A fasting glucose from 100-125 mg/dl is considered impaired (pre-diabetes). CA 9.1 8.4-10.2 mg/dL AST (GOT) 33 5-37 U/L ALT (GPT) 31 0-40 U/L Triglyceride 156 H <150 mg/dL Desirable Triglyceride: less than 150 mg/dL Borderline High Triglyceride 150-199 mg/dL High Triglyceride: 200-499 mg/dL Very High Triglyceride: greater than or equal to 5OO mg/dL Cholesterol 206 H <200 mg/dL Desirable Cholesterol: less than 200 mg/dL Borderline High Cholesterol: 200-239 mg/dL High Cholesterol: greater than 239 mg/dL LDL Calculated 129 H <100 mg/dL Desirable LDL: less than 100 mg/dL Near Optimal/Above Optimal LDL: 110-129 mg/dL Borderline High LDL: 130-159 mg/dL High LDL: 160-189 mg/dL Very High LDL: greater than or equal to 190 mg/dL HDL 46 >40 mg/dL Desirable HDL: greater than 40 mg/dL Note: This HDL assay may give artificially low results in patients with liver disease. Free T4 1.14 0.71-1.85 ng/dL TSH 3rd Gen. 1.56 0.32-4.0 uIU/mL TSH 3rd Generation ([facility]) Coding Level of Care Code Est Pt Prev Care 40-64y(98456) Diagnoses Annual visit for general adult medical examination with abnormal findings Z00.01 Dyslipidemia E78.5 Impaired fasting glucose R73.01 Acquired hypothyroidism E03.9 Advance directive discussed with patient Z71.89 Additional Codes Vital Signs *Quality* - Advance Care Planning discussion: Completed/Scanned ([id number]) Vital Signs *Quality* - Time spent: 16-45 minutes ([id number]) Assessment & Plan Assessment & Plan (1) Annual visit for general adult medical examination with abnormal findings: Code(s): Z00.01 - Encounter for general adult medical examination with abnormal findings (2) Dyslipidemia: Code(s): E78.5 - Hyperlipidemia, unspecified Category: Medical (3) Impaired fasting glucose: Code(s): R73.01 - Impaired fasting glucose Category: Medical (4) Acquired hypothyroidism: Code(s): E03.9 - Hypothyroidism, unspecified Category: Medical (5) Advance directive discussed with patient: Code(s): Z71.89 - Other specified counseling Plan: Initiated the conversation about Advanced Directives. Advanced Directives help patients prepare for current and future decisions about their medical treatment and place of care. Discussed with patient that it is a process where a patients current condition and prognosis are reviewed, their wishes for information regarding their illness are elicited, and likely medical dilemmas are presented and options discussed.Health care proxy form completed today. The form can be amended as needed, reviewed yearly and make changes as needed Plan Plan Patient was informed and verbally consented to the use of an ambient scribe for clinic note documentation during this visit. 1. Hyperglycemia The patient's blood glucose levels are elevated, likely due to dietary habits, particularly a preference for sweets. Dietary modifications and increased physical activity are recommended to manage glucose levels without phar macological intervention at this time. 2. Tendinitis The patient experiences elbow pain consistent with tendinitis, exacerbated by repetitive trauma and heavy lifting. Conservative management with rest, protective padding, and topical analgesics such as Voltaren gel or Salonpas is advised. 3. Hypothyroidism The patient is on levothyroxine 75 mcg with stable thyroid function tests and no significant weight changes. Continued monitoring of thyroid function and medication adherence is recommended. 4. Preventative Care The patient is advised to receive a tetanus booster due to occupational risk and a shingles vaccine as he is now eligible. A stool test for colon cancer screening is planned due to the absence of a recent colonoscopy. Orders: Referrals Cologuard Test Z12.11 - Encounter for screening for malignant neoplasm of colon, Z12.12 - Encounter for screening for malignant neoplasm of rectum
== END 2025-07-28 13:36 | disposition home or self-care (01) ==
LOC: HO.HMCC 12:33
PROVIDERS: PCP Internal Medicine; Visit Provider Internal Medicine
DX: Z00.01 Encounter for general adult medical examination with abnormal findings (principal); E78.5 Hyperlipidemia, unspecified; R73.01 Impaired fasting glucose; E03.9 Hypothyroidism, unspecified; Z71.89 Other specified counseling; Z00.00 Encounter for general adult medical examination without abnormal findings

== ENCOUNTER → 2025-07-28 12:32 | Outpatient (BNVA) | payer OTHER, SELFPAY | PROVIDERS: PCP Internal Medicine; Visit Provider Internal Medicine | DX: Z00.01 Encounter for general adult medical examination with abnormal findings (principal); E78.5 Hyperlipidemia, unspecified; R73.01 Impaired fasting glucose; E03.9 Hypothyroidism, unspecified; N52.9 Male erectile dysfunction, unspecified; M77.8 Other enthesopathies, not elsewhere classified; Z71.89 Other specified counseling | CPT/HCPCS: 99396; 99497 ==